=== PATIENT | male | born 1960 | race Caucasian/White ===

== ENCOUNTER 2018-09-26 19:58 | Inpatient (IN) ==
[2018-09-26 20:33] LABS: Basophils # 0.1 K/mcL (0.0-0.2); Basophils % 0.4 %; Eosinophils # 0.2 K/mcL (0.0-0.6); Eosinophils % 1.1 %; Hematocrit 37.7 % (37.5-50.1); Hemoglobin 11.5 g/dL (12.9-16.9); Immature Granulocytes % 0.5 % (0-4); Lymphocytes # 2.5 K/mcL (0.6-4.6); Lymphocytes % 16.8 %; Mean Corpuscular HGB Conc 30.5 g/dL (31.6-35.5); Mean Corpuscular Hemoglobin 28.5 pg (28.0-33.3); Mean Corpuscular Volume 93.5 fL (83.0-100.0); Mean Platelet Volume 9.5 fL (9.4-12.4); Monocytes # 1.3 K/mcL (0.0-1.3); Monocytes % 8.6 %; Platelet Count 239 K/mcL (140-400); Red Blood Count 4.03 M/mcL (4.19-5.50); Red Cell Distribution Width 12.8 % (11.5-14.5); Segmented Neutrophils % 72.6 %
[2018-09-26] MEDS ORDERED: methylPREDNISolone 125 MG/2 ML VIAL IVP ONE (20:41)
[2018-09-26] MEDS ORDERED: Ipratropium/Albuterol Neb 3 ML IH ONE (20:42)
[2018-09-26 20:54] LABS: BUN/Creatinine Ratio 22 (6-26); Blood Urea Nitrogen 15 mg/dL (8-23); Calcium 9.6 mg/dL (8.6-10.3); Carbon Dioxide 33 mEq/L (23-29); Chloride 100 mEq/L (98-107); Glucose 118 mg/dL (70-105); Osmolality,Calculated 286 (280-300); Potassium 4.2 mEq/L (3.5-5.1); Sodium 137 mEq/L (136-145); eGFR For Non-African Americans > 60 (> 60)
[2018-09-26 20:55] LABS: Troponin I < 0.03 ng/mL (< 0.04)
[2018-09-26 21:04] LABS: VBG HCO3 33 mEq/L (21-27); VBG PCO2 54 mmHg (41-51); VBG PO2 190 mmHg (25-50)
--- NOTE | 2018-09-26 21:46 | Emergency Department Note ---
Disposition Clinical Impression: COPD exacerbation, Confusion Disposition: Admitted As Inpatient Condition: Fair Time of Disposition: 22:03 General Adult HPI - General Chief complaint: ED Shortness of Breath/Dyspnea Stated complaint: francisca copd Time Seen by Provider: 09/26/18 20:05 Source: patient Mode of arrival: ambulatory Limitations: no limitations Nursing Notes Reviewed: Yes Vital Signs Reviewed: Yes - History of Present Illness HPI Narrative: Patient is a 4-year-old male with a past medical history of depression, COPD and brain tumor presents to the emergency department for evaluation of confusion. According the patient's she states that over the past month he has had worsening of his confusion. She states that he is disoriented intermittently and also was exhibiting abnormal behavior and having episodes of urinary incontinence. States that the patient was recently seen at [facility] for his symptoms she states that they told him that his lungs are just very weak and that there is nothing they can do for them in the hospital any further. states that this confusion has increased over the past 2 days. She states that he is chronically on 5 L nasal cannula at home. She denies any other obvious infectious symptoms such as increase in cough, nausea, vomiting, diarrhea or urinary complaints from the patient. Patient himself denies any pain at this time including no chest pain, dyspnea, abdominal pain. Pain Scale: 0 - Related Data Allergies Allergy/AdvReac Type Severity Reaction Status Date / Time morphine AdvReac See Verified 09/26/18 20:00 Comments All systems ED: reviewed and negative except as stated. Review of Systems: As Per HPI Constitutional: Reports: weakness. Denies: fever, chills Cardiovascular: Denies: chest pain, palpitations, dyspnea on exertion, edema, syncope Respiratory: Denies: cough, dyspnea, wheezes Gastrointestinal: Denies: abdominal pain, nausea, vomiting Genitourinary: Denies: urgency, dysuria, frequency Musculoskeletal: Denies: back pain, neck pain Integumentary: Denies: rash Neurological: Reports: confusion. Denies: headache, weakness, numbness, paresthesias Psychiatric: Denies: anxiety Past Medical History - Past Medical History Attestation: Yes The following information was validated with the patient. Medical history: Reports: COPD Psychiatric history: Reports: depression - Social History Smoking Status: Former smoker Smokeless Tobacco Status: No Alcohol use: Reports: none Drug use: Reports: none Physical Exam - General Limitations: no limitations General appearance: alert, in no apparent distress - Head Head exam: atraumatic, normocephalic, normal inspection - Eye Eye exam: Present: normal appearance, PERRL, EOMI - ENT ENT exam: normal exam, normal oropharynx, mucous membranes moist - Neck Neck exam: Present: normal inspection, full ROM, trachea midline - Chest Chest inspection: Present: normal inspection, symmetric chest wall rise. Absent: tenderness - Respiratory Respiratory exam: Present: wheezes (mild wheezing diffusely. Diminished breath sounds.) - Cardiovascular Cardiovascular exam: Present: regular rate, normal rhythm, normal heart sounds, +S1, +S2 - Abdominal Exam Abdominal exam: Present: soft, normal bowel sounds - Extremities Exam Extremities exam: Present: normal inspection, full ROM. Absent: tenderness, pedal edema - Back Exam Back exam: Present: normal inspection. Absent: tenderness - Neurological Exam Neurological exam: Present: alert, other (oriented x1) - Expanded Neurological Exam Patient oriented to: Present: person. Absent: place, time Speech: Present: fluid speech Cranial nerves: EOM function (II, III, IV, ): Normal, facial sensation (V): Normal, facial palsy (VII): Normal, gag reflex (IX): Normal, spinal accessory function (XI): Normal, tongue deviation (XII): Normal Cerebellar function: finger to nose: Normal, heel to moran: Normal Motor strength - LUE: 5/5 Motor strength - RUE: 5/5 Motor strength - LLE: 5/5 Motor strength - RLE: 5/5 Sensory exam upper extremity: light touch: Normal Sensory exam lower extremity: light touch: Normal Coma Scale Eye Opening: Spontaneous Coma Scale Motor Response: Obeys Commands Coma Scale Verbal Response: Oriented Coma Scale Total: 15 - Psychiatric Psychiatric exam: Present: normal affect, normal mood - Skin Skin exam: Present: warm, dry, intact, normal color Course Course Narrative: Patient's presenting for worsening confusion. On exam he is oriented 1. He does have diminished breath sounds bilaterally with mild wheezing. He underwent evaluation for his confusion that he was treated for COPD exacerbation while in the emergency department. CT of his head showed no acute intracranial abnormality and chest x-ray was negative for any acute cardiopulmonary process. His lab work was significant for leukocytosis of 15.2 and metabolic panel was within normal limits. A VBG was drawn early on patient's care to evaluate for any hypercapnia that was within normal limits. Discussedplan to admit the patient for further evaluation of his disorientation as well as continued treatment of COPD. Vital Signs Temperature 98.1 F 09/26/18 20:00 Pulse Rate 85 09/26/18 20:00 Respiratory Rate 25 09/26/18 20:00 Blood Pressure 128/82 09/26/18 20:00 O2 Sat by Pulse Oximetry 95 09/26/18 20:00 Temperature 98.1 F 09/26/18 20:10 Pulse Rate 88 09/26/18 21:41 Respiratory Rate 18 09/27/18 01:08 Blood Pressure 126/92 09/27/18 01:08 O2 Sat by Pulse Oximetry 98 09/26/18 21:41 Oxygen Delivery Oxygen Delivery Nasal Cannula Medical Decision Making - Medical Records Medical records reviewed: Yes I reviewed the patient's medical records. - Lab Data Lab results reviewed: Yes I reviewed the patient's lab results. Result diagrams: 09/26/18 20:16 09/26/18 20:16 Lab Results 09/26/18 09/26/18 09/26/18 Range/Units 20:16 20:16 20:16 WBC 15.2 H (4.3-11.1) K/mcL RBC 4.03 L (4.19-5.50) M/mcL Hgb 11.5 L (12.9-16.9) g/dL Hct 37.7 (37.5-50.1) % MCV 93.5 (83.0-100.0) fL MCH 28.5 (28.0-33.3) pg MCHC 30.5 L (31.6-35.5) g/dL RDW 12.8 (11.5-14.5) % Plt Count 239 (140-400) K/mcL MPV 9.5 (9.4-12.4) fL Immature Gran % 0.5 (0-4) % Seg Neutrophils % 72.6 % Lymphocytes % 16.8 % Monocytes % 8.6 % Eosinophils % 1.1 % Basophils % 0.4 % Neutrophils # 11.0 H (1.6-8.9) K/mcL Lymphocytes # 2.5 (0.6-4.6) K/mcL Monocytes # 1.3 (0.0-1.3) K/mcL Eosinophils # 0.2 (0.0-0.6) K/mcL Basophils # 0.1 (0.0-0.2) K/mcL VBG pH (7.32-7.42) pH Units VBG pCO2 (41-51) mmHg VBG pO2 (25-50) mmHg VBG HCO3 (21-27) mEq/L Sodium 137 (136-145) mEq/L Potassium 4.2 (3.5-5.1) mEq/L Chloride 100 (98-107) mEq/L Carbon Dioxide 33 H (23-29) mEq/L BUN 15 (8-23) mg/dL Creatinine 0.67 L (0.70-1.30) mg/dL Est GFR ( Amer) > 60 (> 60) Est GFR (Non-Af Amer) > 60 (> 60) BUN/Creatinine Ratio 22 (6-26) Glucose 118 H (70-105) mg/dL Calculated Osmolality 286 (280-300) Lactic Acid (0.5-2.2) mmol/L Calcium 9.6 (8.6-10.3) mg/dL Total Bilirubin 0.5 (0.3-1.0) mg/dL Direct Bilirubin 0.1 (0.0-0.2) mg/dL Indirect Bilirubin 0.4 (0.0-1.2) mg/dL AST 17 (13-39) Units/L ALT 9 (7-52) Units/L Alkaline Phosphatase 64 (34-104) Units/L Troponin I < 0.03 (< 0.04) ng/mL B-Natriuretic Peptide 50 (Less than 100) pg/mL Serum Total Protein 7.1 (6.4-8.9) g/dL Albumin 4.3 (3.5-5.7) g/dL Globulin 2.8 (2.4-3.5) g/dL Albumin/Globulin Ratio 1.5 (1.1-2.2) TSH 0.610 (0.340-5.600) mcIU/mL Urine Color (Yellow) Urine Clarity (Clear) Urine pH (5.0-8.0) pH Units Ur Specific [place] (1.010-1.025) Urine Protein (Neg-Trace) mg/dL Urine Glucose (UA) (Normal) mg/dL Urine Ketones (Negative) mg/dL Urine Blood (Negative) Urine Nitrite (Negative) Urine Bilirubin (Negative) Urine Urobilinogen (Normal) mg/dL Ur Leukocyte Esterase (Negative) Ur Culture Indicated? (NO) 09/26/18 09/26/18 09/26/18 Range/Units 20:16 21:01 21:55 WBC (4.3-11.1) K/mcL RBC (4.19-5.50) M/mcL Hgb (12.9-16.9) g/dL Hct (37.5-50.1) % MCV (83.0-100.0) fL MCH (28.0-33.3) pg MCHC (31.6-35.5) g/dL RDW (11.5-14.5) % Plt Count (140-400) K/mcL MPV (9.4-12.4) fL Immature Gran % (0-4) % Seg Neutrophils % % Lymphocytes % % Monocytes % % Eosinophils % % Basophils % % Neutrophils # (1.6-8.9) K/mcL Lymphocytes # (0.6-4.6) K/mcL Monocytes # (0.0-1.3) K/mcL Eosinophils # (0.0-0.6) K/mcL Basophils # (0.0-0.2) K/mcL VBG pH 7.40 (7.32-7.42) pH Units VBG pCO2 54 H (41-51) mmHg VBG pO2 190 H (25-50) mmHg VBG HCO3 33 H (21-27) mEq/L Sodium (136-145) mEq/L Potassium (3.5-5.1) mEq/L Chloride (98-107) mEq/L Carbon Dioxide (23-29) mEq/L BUN (8-23) mg/dL Creatinine (0.70-1.30) mg/dL Est GFR ( Amer) (> 60) Est GFR (Non-Af Amer) (> 60) BUN/Creatinine Ratio (6-26) Glucose (70-105) mg/dL Calculated Osmolality (280-300) Lactic Acid 1.0 (0.5-2.2) mmol/L Calcium (8.6-10.3) mg/dL Total Bilirubin (0.3-1.0) mg/dL Direct Bilirubin (0.0-0.2) mg/dL Indirect Bilirubin (0.0-1.2) mg/dL AST (13-39) Units/L ALT (7-52) Units/L Alkaline Phosphatase (34-104) Units/L Troponin I (< 0.04) ng/mL B-Natriuretic Peptide (Less than 100) pg/mL Serum Total Protein (6.4-8.9) g/dL Albumin (3.5-5.7) g/dL Globulin (2.4-3.5) g/dL Albumin/Globulin Ratio (1.1-2.2) TSH (0.340-5.600) mcIU/mL Urine Color Yellow (Yellow) Urine Clarity Clear (Clear) Urine pH 8.0 (5.0-8.0) pH Units Ur Specific [place] 1.006 L (1.010-1.025) Urine Protein Negative (Neg-Trace) mg/dL Urine Glucose (UA) Normal (Normal) mg/dL Urine Ketones Negative (Negative) mg/dL Urine Blood Negative (Negative) Urine Nitrite Negative (Negative) Urine Bilirubin Negative (Negative) Urine Urobilinogen Normal (Normal) mg/dL Ur Leukocyte Esterase Negative (Negative) Ur Culture Indicated? NO (NO) - Radiology Data Radiology results reviewed: Yes I reviewed the patient's radiology results. Chest X-Ray 09/26/18 20:11 IMPRESSION: No acute cardiopulmonary process D/ / Ramesh Steele / Ramesh Steele Interpreting Provider: Ramesh Steele - EKG Data EKG #1 EKG attestation: Yes I reviewed and interpreted this EKG. EKG results narrative: EKG done at 20:12 shows sinus rhythm at a rate of 80 bpm. Normal axis. Intervals within normal limits. No STEMI.
[2018-09-26 21:48] LABS: Alanine Aminotransferase 9 Units/L (7-52); Albumin 4.3 g/dL (3.5-5.7); Albumin/Globulin Ratio 1.5 (1.1-2.2); Alkaline Phosphatase 64 Units/L (34-104); Aspartate Amino Transferase 17 Units/L (13-39); Bilirubin,Direct 0.1 mg/dL (0.0-0.2); Bilirubin,Indirect 0.4 mg/dL (0.0-1.2); Bilirubin,Total 0.5 mg/dL (0.3-1.0); Globulin 2.8 g/dL (2.4-3.5); Total Protein 7.1 g/dL (6.4-8.9)
[2018-09-26] MEDS ORDERED: Levofloxacin 750 MG/150 ML 750 MG/150 ML BAG IVPB ONE (22:00)
[2018-09-26 22:09] LABS: Bilirubin,Urine Negative (Negative); Blood,Urine Negative (Negative); Clarity,Urine Clear (Clear); Color,Urine Yellow (Yellow); Glucose,Urine (UA) Normal (Normal); Ketones,Urine Negative (Negative); Leukocyte Esterase,Urine Negative (Negative); Nitrite,Urine Negative (Negative); Protein,Urine Negative (Neg-Trace); Specific Gravity,Urine 1.006 (1.010-1.025); Urobilinogen,Urine Normal (Normal)
--- NOTE | 2018-09-26 23:28 | Emergency Department Note ---
Disposition Clinical Impression: COPD exacerbation, Confusion Disposition: Admitted As Inpatient Condition: Fair Referrals: [facility] [Outside] Forms: ED Satisfaction Letter General Adult HPI - General Chief complaint: ED Shortness of Breath/Dyspnea Stated complaint: francisca copd Time Seen by Provider: 09/26/18 20:05 Source: patient Mode of arrival: ambulatory Limitations: no limitations Nursing Notes Reviewed: Yes Vital Signs Reviewed: Yes - History of Present Illness Pain Scale: 0 - Related Data Allergies Allergy/AdvReac Type Severity Reaction Status Date / Time morphine AdvReac See Verified 09/26/18 20:00 Comments Constitutional: Reports: weakness. Denies: fever, chills Cardiovascular: Denies: chest pain, palpitations, dyspnea on exertion, edema, syncope Respiratory: Denies: cough, dyspnea, wheezes Gastrointestinal: Denies: abdominal pain, nausea, vomiting Genitourinary: Denies: urgency, dysuria, frequency Musculoskeletal: Denies: back pain, neck pain Integumentary: Denies: rash Neurological: Reports: confusion. Denies: headache, weakness, numbness, paresthesias Psychiatric: Denies: anxiety Past Medical History - Past Medical History Medical history: Reports: COPD Psychiatric history: Reports: depression - Social History Smoking Status: Former smoker Smokeless Tobacco Status: No Alcohol use: Reports: none Drug use: Reports: none Physical Exam - General Limitations: no limitations General appearance: alert, in no apparent distress Course Vital Signs Temperature 98.1 F 09/26/18 20:00 Pulse Rate 85 09/26/18 20:00 Respiratory Rate 25 09/26/18 20:00 Blood Pressure 128/82 09/26/18 20:00 O2 Sat by Pulse Oximetry 95 09/26/18 20:00 Temperature 98.1 F 09/26/18 20:10 Pulse Rate 88 09/26/18 21:41 Respiratory Rate 17 09/26/18 21:41 Blood Pressure 117/92 09/26/18 21:41 O2 Sat by Pulse Oximetry 98 09/26/18 21:41 Oxygen Delivery Oxygen Delivery Nasal Cannula Medical Decision Making - Lab Data Lab results reviewed: Yes I reviewed the patient's lab results. Result diagrams: 09/26/18 20:16 09/26/18 20:16 Lab Results 09/26/18 09/26/18 09/26/18 Range/Units 20:16 20:16 20:16 WBC 15.2 H (4.3-11.1) K/mcL RBC 4.03 L (4.19-5.50) M/mcL Hgb 11.5 L (12.9-16.9) g/dL Hct 37.7 (37.5-50.1) % MCV 93.5 (83.0-100.0) fL MCH 28.5 (28.0-33.3) pg MCHC 30.5 L (31.6-35.5) g/dL RDW 12.8 (11.5-14.5) % Plt Count 239 (140-400) K/mcL MPV 9.5 (9.4-12.4) fL Immature Gran % 0.5 (0-4) % Seg Neutrophils % 72.6 % Lymphocytes % 16.8 % Monocytes % 8.6 % Eosinophils % 1.1 % Basophils % 0.4 % Neutrophils # 11.0 H (1.6-8.9) K/mcL Lymphocytes # 2.5 (0.6-4.6) K/mcL Monocytes # 1.3 (0.0-1.3) K/mcL Eosinophils # 0.2 (0.0-0.6) K/mcL Basophils # 0.1 (0.0-0.2) K/mcL VBG pH (7.32-7.42) pH Units VBG pCO2 (41-51) mmHg VBG pO2 (25-50) mmHg VBG HCO3 (21-27) mEq/L Sodium 137 (136-145) mEq/L Potassium 4.2 (3.5-5.1) mEq/L Chloride 100 (98-107) mEq/L Carbon Dioxide 33 H (23-29) mEq/L BUN 15 (8-23) mg/dL Creatinine 0.67 L (0.70-1.30) mg/dL Est GFR ( Amer) > 60 (> 60) Est GFR (Non-Af Amer) > 60 (> 60) BUN/Creatinine Ratio 22 (6-26) Glucose 118 H (70-105) mg/dL Calculated Osmolality 286 (280-300) Lactic Acid (0.5-2.2) mmol/L Calcium 9.6 (8.6-10.3) mg/dL Total Bilirubin 0.5 (0.3-1.0) mg/dL Direct Bilirubin 0.1 (0.0-0.2) mg/dL Indirect Bilirubin 0.4 (0.0-1.2) mg/dL AST 17 (13-39) Units/L ALT 9 (7-52) Units/L Alkaline Phosphatase 64 (34-104) Units/L Troponin I < 0.03 (< 0.04) ng/mL B-Natriuretic Peptide 50 (Less than 100) pg/mL Serum Total Protein 7.1 (6.4-8.9) g/dL Albumin 4.3 (3.5-5.7) g/dL Globulin 2.8 (2.4-3.5) g/dL Albumin/Globulin Ratio 1.5 (1.1-2.2) TSH 0.610 (0.340-5.600) mcIU/mL Urine Color (Yellow) Urine Clarity (Clear) Urine pH (5.0-8.0) pH Units Ur Specific [place] (1.010-1.025) Urine Protein (Neg-Trace) mg/dL Urine Glucose (UA) (Normal) mg/dL Urine Ketones (Negative) mg/dL Urine Blood (Negative) Urine Nitrite (Negative) Urine Bilirubin (Negative) Urine Urobilinogen (Normal) mg/dL Ur Leukocyte Esterase (Negative) Ur Culture Indicated? (NO) 09/26/18 09/26/18 09/26/18 Range/Units 20:16 21:01 21:55 WBC (4.3-11.1) K/mcL RBC (4.19-5.50) M/mcL Hgb (12.9-16.9) g/dL Hct (37.5-50.1) % MCV (83.0-100.0) fL MCH (28.0-33.3) pg MCHC (31.6-35.5) g/dL RDW (11.5-14.5) % Plt Count (140-400) K/mcL MPV (9.4-12.4) fL Immature Gran % (0-4) % Seg Neutrophils % % Lymphocytes % % Monocytes % % Eosinophils % % Basophils % % Neutrophils # (1.6-8.9) K/mcL Lymphocytes # (0.6-4.6) K/mcL Monocytes # (0.0-1.3) K/mcL Eosinophils # (0.0-0.6) K/mcL Basophils # (0.0-0.2) K/mcL VBG pH 7.40 (7.32-7.42) pH Units VBG pCO2 54 H (41-51) mmHg VBG pO2 190 H (25-50) mmHg VBG HCO3 33 H (21-27) mEq/L Sodium (136-145) mEq/L Potassium (3.5-5.1) mEq/L Chloride (98-107) mEq/L Carbon Dioxide (23-29) mEq/L BUN (8-23) mg/dL Creatinine (0.70-1.30) mg/dL Est GFR ( Amer) (> 60) Est GFR (Non-Af Amer) (> 60) BUN/Creatinine Ratio (6-26) Glucose (70-105) mg/dL Calculated Osmolality (280-300) Lactic Acid 1.0 (0.5-2.2) mmol/L Calcium (8.6-10.3) mg/dL Total Bilirubin (0.3-1.0) mg/dL Direct Bilirubin (0.0-0.2) mg/dL Indirect Bilirubin (0.0-1.2) mg/dL AST (13-39) Units/L ALT (7-52) Units/L Alkaline Phosphatase (34-104) Units/L Troponin I (< 0.04) ng/mL B-Natriuretic Peptide (Less than 100) pg/mL Serum Total Protein (6.4-8.9) g/dL Albumin (3.5-5.7) g/dL Globulin (2.4-3.5) g/dL Albumin/Globulin Ratio (1.1-2.2) TSH (0.340-5.600) mcIU/mL Urine Color Yellow (Yellow) Urine Clarity Clear (Clear) Urine pH 8.0 (5.0-8.0) pH Units Ur Specific [place] 1.006 L (1.010-1.025) Urine Protein Negative (Neg-Trace) mg/dL Urine Glucose (UA) Normal (Normal) mg/dL Urine Ketones Negative (Negative) mg/dL Urine Blood Negative (Negative) Urine Nitrite Negative (Negative) Urine Bilirubin Negative (Negative) Urine Urobilinogen Normal (Normal) mg/dL Ur Leukocyte Esterase Negative (Negative) Ur Culture Indicated? NO (NO) - Radiology Data Radiology results reviewed: Yes I reviewed the patient's radiology results. Chest X-Ray 09/26/18 20:11 IMPRESSION: No acute cardiopulmonary process D/ / Ramesh Steele / Ramesh Steele Interpreting Provider: Ramesh Steele Head CT 09/26/18 20:40 IMPRESSION: 1. No acute intracranial abnormality. 2. Status post left parietal craniotomy with adjacent encephalomalacia. 3. Large right and small left mastoid air cell effusions. D/ / Ian Dela Cruz MD / Ian Dela Cruz MD Interpreting Provider: Ian Dela Cruz MD - EKG Data EKG #1 EKG attestation: Yes I reviewed and interpreted this EKG. EKG results narrative: EKG shows normal sinus rhythm with ventricular rate of 80. No ST segment elevation or depression. No arrhythmia or ectopy. Attestation Statement - Attestation Attestation: I, Stanton Castorena MD, personally evaluated this patient and discussed their management with the resident physician. I reviewed the resident's note and agree with the documented findings, medical decision making, and plan of care. 58-year-old male with history of COPD presents to the emergency department with a complaint of increased shortness of breath for the past 2 days. There has been increased cough with some thick reddish-brown sputum production. Subjective fevers. He also complains of some diffuse chest pain. Patient is on home oxygen at 5 L. reports that about 1-1/2 months ago he was admitted holds her for similar episode and was in ICU for 4 days but was then sent home and told there is nothing more they could do for him. On examination patient is a well-developed well-nourished male in mild distress. He is alert but oriented to person only. He seems confused and slow to respond to questions. He is pale and mildly diaphoretic. No cyanosis noted. Breath sounds are markedly decreased bilaterally with scattered bilateral expiratory wheezes. Heart regular rate and rhythm. Abdomen soft and nontender with normal bowel sounds. EKG shows a normal sinus rhythm with rate of 80 in no acute changes. Chest x- ray shows no acute cardiopulmonary abnormality. Head CT shows no acute intracranial abnormality. Labs reviewed. WBC 15.2. BNP, troponin, and lactic acid normal. The hospitalist, Dr. Thorne, was consulted and accepted admission of the patient.
[2018-09-27] MEDS: MethylPREDNISolone 40 MG/ML VIAL IVP SCH ×3 (05:51→17:28)
[2018-09-27] MEDS: Ipratropium/Albuterol Neb 3 ML IH SCH ×4 (06:15→23:18)
[2018-09-27 06:35] LABS: ABG Base Excess 6 mEq/L (-2 to 3); ABG HCO3 32 mEq/L (21-27); ABG Oxygen Saturation 96 % (95-98); ABG PCO2 51 mmHg (35-45); ABG PH 7.41 pH Units (7.32-7.45); ABG PO2 82 mmHg (85-104); ABG TCO2 34 mEq/L (20-26)
--- NOTE | 2018-09-27 06:36 | Internal Med History&Physical ---
Date of Encounter: 09/27/18 Time of Encounter: 06:33 Internal Medicine - H&P: HPI Chief complaint: AMS/SOB History of present illness: Mr. Flores is a 58 year old male with a past medical history of COPD on 5 L home oxygen who presents to the ED due to increasing confusion and shortness of breath. At the time of my assessment patient was alert oriented 1. Patient's is at bedside who provided most of the history. She states that for the past 2 days patient has been having shortness of breath characterized by shallow rapid breathing. No reports of cough. She also endorses subjective fever and chills. No sick contacts. She is also noted increasing confusion over the past 4 days. She states that patient has not been eating or going to the bathroom. He also has been hallucinating stating he sees cockroaches and spiderwebs which are not there. While in the room patient reported seeing cockroaches in the corner. 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 She is concerned that he may have some sort of underlying dementia. He is at baseline alert oriented 2-3. She states that he has been shaking and has been feeling more weak than usual for the past week. reports that about 1-1/2 months ago he was admitted with a similar presentation and was in ICU for 4 days. Labs were notable for an elevated white blood cell count. Blood gases were obtained which showed mild hypercapnia with a PCO2 of 51. Past Med Surg Social Fam HX - Past Medical History Medical history: COPD Psychiatric history: depression - Past Surgical History Additional surgical history: brain surgery-tumor removed (1990) - Social History Smoking Status: Former smoker Smokeless Tobacco Status: No Alcohol use: none Drug use: none - Family History Mother Age at : 62 Hx Family Cancer: Yes (kidney) Hx Family Endocrine Disorder: Yes Father Age at : 60 Hx Family Cardiac Disorders: Yes Internal Medicine - H&P: Meds Aspirin [Lo-Dose Aspirin EC] 09/27/18 [History] Baclofen [Lioresal] 09/27/18 [History] Escitalopram [Lexapro] 09/27/18 [History] [place] Carbonate 09/27/18 [History] Mirtazapine 09/27/18 [History] Nabumetone [Relafen] 09/27/18 [History] OxyCODONE/APAP 10/325 09/27/18 [History] OxyCODONE/APAP 10/325 20 mg 09/27/18 [History] Ranitidine HCl [Acid Diesel Motor Mechanic] 09/27/18 [History] RisperiDONE 1 mg 09/27/18 [History] Topiramate 09/27/18 [History] Allergy/AdvReac Type Severity Reaction Status Date / Time morphine AdvReac See Verified 09/26/18 20:00 Comments All Systems PM: A 10-system review of systems was performed and is negative for pertinent findings except as documented above in the HPI. - Constitutional Constitutional: no chills, no fever(s), no night sweats - EENT Eyes: no change in vision, no discharge, no pain, no photophobia Ears: no ear discharge, no ear pain, no tinnitus Nose, mouth and throat: no dysphagia, no nasal discharge, no neck pain, no sore throat - Cardiovascular Cardiovascular ROS IM: no chest pain, no diaphoresis, no dyspnea, no lightheadedness, no palpitations, no syncope - Respiratory Respiratory: no cough, no dyspnea, no wheezing, no excessive phlegm production - Gastrointestinal Gastrointestinal: no abdominal pain, no diarrhea, no hematemesis, no hematochezia, no melena, no nausea, no vomiting - Musculoskeletal Musculoskeletal ROS IM: no numbness, no tingling - Integumentary Integumentary IM: no rash, no unusual bruising - Neurological Neurological ROS: no confusion, no convulsions, no focal weakness, no numbness, no tingling, no tremor(s) - Hematologic/Lymphatic Hematologic/Lymphatic: no easy bruising - Constitutional Vitals: Temp Pulse Resp BP Pulse Ox 99.9 F H 85 15 116/78 98 09/27/18 04:41 09/27/18 04:41 09/27/18 04:41 09/27/18 04:41 09/27/18 04:41 Exam: General: Alert and oriented 1 Skin:Normal color, no rash, no lesions. HEENT:EOM, pupils equal, round and reactive. Cardiovascular:Normal S1 & S2, no rubs, murmurs or gallops. No JVD. Pulse regular. Lungs: Diminished breath sounds throughout Abdomen:Soft, non-tender, no rigidity. Extremities:No deformity, no edema or tenderness, no joint swelling or clubbing. Neurological:Normal cognition and motor skills. Pulses:Carotid and radial pulses normal +2. Rest of the physical exam is non contributory Internal Med - H&P Results - Labs CBC & Chem 7: 09/27/18 05:19 09/27/18 06:39 Labs: Short CBC 09/26/18 Range/Units 20:16 WBC 15.2 H (4.3-11.1) K/mcL Hgb 11.5 L (12.9-16.9) g/dL Hct 37.7 (37.5-50.1) % Plt Count 239 (140-400) K/mcL Neutrophils # 11.0 H (1.6-8.9) K/mcL BMP 09/26/18 20:16 Sodium 137 Potassium 4.2 Chloride 100 Carbon Dioxide 33 H BUN 15 Creatinine 0.67 L Glucose 118 H Calcium 9.6 Cardiac Enzymes 09/26/18 Range/Units 20:16 Troponin I < 0.03 (< 0.04) ng/mL Liver Function 09/26/18 Range/Units 20:16 Total Bilirubin 0.5 (0.3-1.0) mg/dL Direct Bilirubin 0.1 (0.0-0.2) mg/dL AST 17 (13-39) Units/L ALT 9 (7-52) Units/L Alkaline Phosphatase 64 (34-104) Units/L Albumin 4.3 (3.5-5.7) g/dL Urine 09/26/18 Range/Units 21:55 Urine Color Yellow (Yellow) Urine Clarity Clear (Clear) Urine pH 8.0 (5.0-8.0) pH Units Ur Specific [place] 1.006 L (1.010-1.025) Urine Protein Negative (Neg-Trace) mg/dL Urine Glucose (UA) Normal (Normal) mg/dL - ABG Interpretation ABG results: 09/26/18 21:01 VBG pH 7.40 VBG pCO2 54 H VBG pO2 190 H VBG HCO3 33 H - Impressions ITS Impressions Chest X-Ray 09/26/18 20:11 IMPRESSION: No acute cardiopulmonary process D/ / Ramesh Steele / Ramesh Steele Interpreting Provider: Ramesh Steele Head CT 09/26/18 20:40 IMPRESSION: 1. No acute intracranial abnormality. 2. Status post left parietal craniotomy with adjacent encephalomalacia. 3. Large right and small left mastoid air cell effusions. D/ / Ian Dela Cruz MD / Ian Dela Cruz MD Interpreting Provider: Ian Dela Cruz MD - Assessment and plan (1) COPD exacerbation Current Visit: Yes Status: Acute Assessment and plan: Patient presents with worsening shortness of breath for the past 2 days. Patient has diminished breath sounds throughout with mild expiratory wheezing noted. Chest x-ray shows no acute cardiopulmonary process. Received Solu- Medrol and breathing treatment in the ED. We will continue treatment for COPD exacerbation -40 mg Solu-Medrol every 6 hours -Duo nebs -Levofloxacin (2) Confusion Current Visit: Yes Status: Acute Assessment and plan: 4 day history of confusion associated with visual hallucinations. Patient currently alert oriented 1, however he does know who the president is. Able to follow commands. ABG was obtained which showed a PCO2 of 51 which is likely his baseline as the patient appears to be compensated. Patient is on multiple psychiatric medications including lithium. Concern that change in mental status may be psychiatric however we will continue to treat for COPD and possible pneumonia and see if symptoms improve. -We will obtain a lithium level -Psychiatry evaluation appreciated. - (3) Mood disorder due to known physiological condition, unspecified Current Visit: Yes Status: Acute Assessment and plan: patient on several psychiatric medications. Unclear if patient has bipolar disorder but is currently on lithium. We will obtain lithium level and psychiatry consult. (4) DVT prophylaxis Current Visit: Yes Status: Acute Assessment and plan: Subcutaneous heparin - Time Spent With Patient Total time spent is greater than 50% in coordination of care (as documented) at patient's floor/unit and/or counseling patient:
[2018-09-27 07:09] LABS: Basophils % 0.1 %; Hemoglobin 11.4 g/dL (12.9-16.9); Immature Granulocytes % 0.5 % (0-4); Lymphocytes # 1.3 K/mcL (0.6-4.6); Lymphocytes % 10.9 %; Mean Corpuscular HGB Conc 30.8 g/dL (31.6-35.5); Mean Corpuscular Hemoglobin 28.3 pg (28.0-33.3); Mean Corpuscular Volume 91.8 fL (83.0-100.0); Mean Platelet Volume 9.7 fL (9.4-12.4); Monocytes # 0.7 K/mcL (0.0-1.3); Monocytes % 6.1 %; Neutrophils # 9.8 K/mcL (1.6-8.9); Platelet Count 251 K/mcL (140-400); Red Blood Count 4.03 M/mcL (4.19-5.50); Red Cell Distribution Width 12.9 % (11.5-14.5); Segmented Neutrophils % 82.4 %
[2018-09-27 07:19] LABS: Alanine Aminotransferase 9 Units/L (7-52); Albumin 4.2 g/dL (3.5-5.7); Albumin/Globulin Ratio 1.4 (1.1-2.2); Alkaline Phosphatase 62 Units/L (34-104); Aspartate Amino Transferase 13 Units/L (13-39); BUN/Creatinine Ratio 25 (6-26); Bilirubin,Total 0.4 mg/dL (0.3-1.0); Blood Urea Nitrogen 16 mg/dL (8-23); Calcium 9.7 mg/dL (8.6-10.3); Carbon Dioxide 29 mEq/L (23-29); Chloride 101 mEq/L (98-107); Globulin 2.9 g/dL (2.4-3.5); Glucose 145 mg/dL (70-105); Osmolality,Calculated 284 (280-300); Potassium 4.5 mEq/L (3.5-5.1); Sodium 135 mEq/L (136-145); Total Protein 7.1 g/dL (6.4-8.9); eGFR For Non-African Americans > 60 (> 60)
[2018-09-27] MEDS: *HR* Heparin 5,000 UNIT/ML VIAL SQ SCH ×3 (08:10→23:16)
[2018-09-27] MEDS ORDERED: Baclofen 10 MG TABLET PO PRN (12:57)
[2018-09-27] MEDS: Lithium Carbonate 300 MG CAPSULE PO SCH ×2 (14:40→23:16)
--- NOTE | 2018-09-27 17:28 | Consult Note ---
Date of Encounter: 09/27/18 Time of Encounter: 17:00 Assessment & Recommendation (1) Delirium due to known physiological condition Current visit: Yes Status: Acute History of Present Illness Patient: new to practice Requesting Physician: Navin Reed Reason for consult: ams History of present illness: Mr. Flores is a 58 year old male The patient has a fair historian and his was not present. He can give me some of the features of his medical treatment but cannot tell me why he is on lithium or other medicines this is important to determine his treatment. That being said the patient identifies difficulty with his mentation notes that he is having difficulty with remembering things and has difficulty writing and concentrating. Other features in the chart are strongly suggestive of delirium. CC: Navin Reed Past Med Surg Social Fam HX - Past Medical History Medical history: COPD - Social History Smoking Status: Former smoker Smokeless Tobacco Status: No Alcohol use: none Drug use: none Occupational status: disabled Current living situation: With Family - Family History Mother Age at : 62 Hx Family Cancer: Yes (kidney) Hx Family Endocrine Disorder: Yes Father Age at : 60 Hx Family Cardiac Disorders: Yes Medications & Allergies Aspirin [Adult Aspirin] 81 mg PO DAILY 09/27/18 [History] Baclofen [Lioresal] 10 mg PO TID PRN 09/27/18 [History] Escitalopram [Lexapro] 20 mg PO DAILY 09/27/18 [History] [place] Carbonate 300 mg PO TID 09/27/18 [History] Mirtazapine 45 mg PO HS 09/27/18 [History] Nabumetone [Relafen] 500 mg PO BIDWM 09/27/18 [History] OxyCODONE/APAP 10/325 [Percocet 10/325 MG] 1 tab PO Q6H PRN 09/27/18 [History] Ranitidine HCl [Acid Nurses Supervisor] 150 mg PO BID 09/27/18 [History] Topiramate 50 mg PO BID 09/27/18 [History] Allergy/AdvReac Type Severity Reaction Status Date / Time morphine AdvReac See Verified 09/26/18 20:00 Comments Review of Systems Psychiatric: Reports: abnormal sleep pattern, visual hallucinations, difficulty concentrating Psychiatry Exam - Constitutional Vitals: Temp Pulse Resp BP Pulse Ox 98.7 F 77 18 121/82 98 09/27/18 14:49 09/27/18 14:49 09/27/18 16:11 09/27/18 14:49 09/27/18 16:11 General appearance: age & developmentally appropriate, well-groomed, well- nourished - Musculoskeletal Strength & Tone: abnormal flexion, other - Psychiatric Patient Orientation: Yes Person, Yes Time, Yes Place Level of alertness: Sedated Behavior: guarded Psychomotor activity: Slowed Eye Contact: Minimal Contact Mood Description: Other Affect description: flat Speech Volume: Soft/Quiet Language & Vocabulary: difficulty finding words, anomia Thought Process: Perseveration, Slowed Thinking Thought Content: Yes Intact Attention Span Ability: Unable to Sustain Attention Memory Description: Immediate Impaired, Recent Impaired, Remote Impaired Patient Reliability: Questionable Historian Judgment: Poor Insight: None Results - Drug Levels and Toxicology Drug Levels and Toxicology: Drug Levels and Toxicity 09/27/18 07:08 [place] 0.4 L - Labs Labs: Laboratory Last Values WBC 11.9 K/mcL (4.3-11.1) H 09/27/18 05:19 RBC 4.03 M/mcL (4.19-5.50) L 09/27/18 05:19 Hgb 11.4 g/dL (12.9-16.9) L 09/27/18 05:19 Hct 37.0 % (37.5-50.1) L 09/27/18 05:19 MCV 91.8 fL (83.0-100.0) 09/27/18 05:19 MCH 28.3 pg (28.0-33.3) 09/27/18 05:19 MCHC 30.8 g/dL (31.6-35.5) L 09/27/18 05:19 RDW 12.9 % (11.5-14.5) 09/27/18 05:19 Plt Count 251 K/mcL (140-400) 09/27/18 05:19 MPV 9.7 fL (9.4-12.4) 09/27/18 05:19 Immature Gran % 0.5 % (0-4) 09/27/18 05:19 Seg Neutrophils % 82.4 % 09/27/18 05:19 Lymphocytes % 10.9 % 09/27/18 05:19 Monocytes % 6.1 % 09/27/18 05:19 Eosinophils % 0.0 % 09/27/18 05:19 Basophils % 0.1 % 09/27/18 05:19 Neutrophils # 9.8 K/mcL (1.6-8.9) H 09/27/18 05:19 Lymphocytes # 1.3 K/mcL (0.6-4.6) 09/27/18 05:19 Monocytes # 0.7 K/mcL (0.0-1.3) 09/27/18 05:19 Eosinophils # 0.0 K/mcL (0.0-0.6) 09/27/18 05:19 Basophils # 0.0 K/mcL (0.0-0.2) 09/27/18 05:19 ABG pH 7.41 pH Units (7.32-7.45) 09/27/18 06:32 ABG pCO2 51 mmHg (35-45) H 09/27/18 06:32 ABG pO2 82 mmHg (85-104) L 09/27/18 06:32 ABG HCO3 32 mEq/L (21-27) H 09/27/18 06:32 ABG Total CO2 34 mEq/L (20-26) H 09/27/18 06:32 ABG O2 Saturation 96 % (95-98) 09/27/18 06:32 ABG Base Excess 6 mEq/L (-2 to 3) H 09/27/18 06:32 VBG pH 7.40 pH Units (7.32-7.42) 09/26/18 21:01 VBG pCO2 54 mmHg (41-51) H 09/26/18 21:01 VBG pO2 190 mmHg (25-50) H 09/26/18 21:01 VBG HCO3 33 mEq/L (21-27) H 09/26/18 21:01 O2 Delivery Device Cannula 09/27/18 06:32 Inspired O2 3.0 (1-15=lpm [id number]%) 09/27/18 06:32 Sodium 135 mEq/L (136-145) L 09/27/18 06:39 Potassium 4.5 mEq/L (3.5-5.1) 09/27/18 06:39 Chloride 101 mEq/L (98-107) 12/20/18 06:39 Carbon Dioxide 29 mEq/L (23-29) 09/27/18 06:39 BUN 16 mg/dL (8-23) 09/27/18 06:39 Creatinine 0.63 mg/dL (0.70-1.30) L 09/27/18 06:39 Est GFR ( Amer) > 60 (> 60) 09/27/18 06:39 Est GFR (Non-Af Amer) > 60 (> 60) 09/27/18 06:39 BUN/Creatinine Ratio 25 (6-26) 09/27/18 06:39 Glucose 145 mg/dL (70-105) H 09/27/18 06:39 Calculated Osmolality 284 (280-300) 09/27/18 06:39 Lactic Acid 1.0 mmol/L (0.5-2.2) 09/26/18 20:16 Calcium 9.7 mg/dL (8.6-10.3) 09/27/18 06:39 Total Bilirubin 0.4 mg/dL (0.3-1.0) 09/27/18 06:39 Direct Bilirubin 0.1 mg/dL (0.0-0.2) 09/26/18 20:16 Indirect Bilirubin 0.4 mg/dL (0.0-1.2) 09/26/18 20:16 AST 13 Units/L (13-39) 09/27/18 06:39 ALT 9 Units/L (7-52) 09/27/18 06:39 Alkaline Phosphatase 62 Units/L (34-104) 09/27/18 06:39 Ammonia 96 mcmol/L (16-53) H 09/27/18 06:41 Troponin I < 0.03 ng/mL (< 0.04) 09/26/18 20:16 B-Natriuretic Peptide 50 pg/mL (Less than 100) 09/26/18 20:16 Serum Total Protein 7.1 g/dL (6.4-8.9) 09/27/18 06:39 Albumin 4.2 g/dL (3.5-5.7) 09/27/18 06:39 Globulin 2.9 g/dL (2.4-3.5) 09/27/18 06:39 Albumin/Globulin Ratio 1.4 (1.1-2.2) 09/27/18 06:39 TSH 0.610 mcIU/mL (0.340-5.600) 09/26/18 20:16 Urine Color Yellow (Yellow) 09/26/18 21:55 Urine Clarity Clear (Clear) 09/26/18 21:55 Urine pH 8.0 pH Units (5.0-8.0) 09/26/18 21:55 Ur Specific [place] 1.006 (1.010-1.025) L 09/26/18 21:55 Urine Protein Negative mg/dL (Neg-Trace) 09/26/18 21:55 Urine Glucose (UA) Normal mg/dL (Normal) 09/26/18 21:55 Urine Ketones Negative mg/dL (Negative) 09/26/18 21:55 Urine Blood Negative (Negative) 09/26/18 21:55 Urine Nitrite Negative (Negative) 09/26/18 21:55 Urine Bilirubin Negative (Negative) 09/26/18 21:55 Urine Urobilinogen Normal mg/dL (Normal) 09/26/18 21:55 Ur Leukocyte Esterase Negative (Negative) 09/26/18 21:55 Ur Culture Indicated? NO (NO) 09/26/18 21:55 [place] 0.4 mEq/L (0.6-1.2) L 09/27/18 07:08 - Impressions Impressions Chest X-Ray 09/26/18 20:11 IMPRESSION: No acute cardiopulmonary process D/ / Ramesh Steele / Ramesh Steele Interpreting Provider: Ramesh Steele Head CT 09/26/18 20:40 IMPRESSION: 1. No acute intracranial abnormality. 2. Status post left parietal craniotomy with adjacent encephalomalacia. 3. Large right and small left mastoid air cell effusions. D/ / Ian Dela Cruz MD / Ian Dela Cruz MD Interpreting Provider: Ian Dela Cruz MD Consult Discharge Plan - Plan Referrals: NONE,PCP [Primary Care Provider] -
[2018-09-27] MEDS ORDERED: Levofloxacin 750 MG/150 ML 750 MG/150 ML BAG IVPB SCH (22:00)
--- NOTE | 2018-09-27 22:43 | Internal Med Progress Note ---
Hospitalist Progress Note - Encounter Date of Encounter: 09/27/18 Time of Encounter: 19:00 - Subjective Interval History: SUBJECTIVE: The patient feels better. He seems to be less confused; according to his family. Denies chest pain. He said breathing is less labored. He continues to have mild/moderate cough with off and on wheezing. Denies abdominal pain, nausea and vomiting. OBJECTIVE: Skin: Free of rash and discoloration. ENMT: Oral/pharyngeal mucosa is normal in appearance. Eyes: Sclera is white. There is no discharge from eyes. Respiratory: Normal breath sounds; I can hear a few bilateral rhonchi and wheezes. CV: Heart is regular; no gallop or murmur. GI: Abdomen is soft and not tender. There is no palpable mass or visceromegaly. Neuro: There is no focal deficits. ADDITIONAL DATA: Hemoglobin is 11.4 with WBC of 11.9 thousand (15.2 thousand yesterday). ABG shows PCO2 of 51 with PO2 of 82. It was done on FiO2 of 32%. BMP and hepatic panel are normal. However, his ammonia level is 96. ASSESSMENT AND PLAN: COPD exacerbation with acute on chronic hypoxic and hypercapnic respiratory failure. We will continue IV Levaquin with IV Solu-Medrol and nebulizer treatments with DuoNeb. Confusion. Better today. It could be secondary to he is hypercapnia. Then, it should get better with the above-mentioned treatments. It could be secondary to increased ammonia level. We need to repeat his first, as he said liver function tests are normal. I am requesting ultrasound of liver to check for possible liver cirrhosis. He does have underlying bipolar disorder. I am going to restart he is lithium and Topamax. His lithium level is a little bit lower and then recommended range. - Exam Vitals: Temp Pulse Resp BP Pulse Ox 98.7 F 77 18 121/82 98 09/27/18 14:49 09/27/18 14:49 09/27/18 16:11 09/27/18 14:49 09/27/18 16:11 Exam: xx - Assessment and Plan (1) COPD exacerbation Current Visit: Yes Status: Acute (2) Confusion Current Visit: Yes Status: Acute (3) Mood disorder due to known physiological condition, unspecified Current Visit: Yes Status: Acute (4) DVT prophylaxis Current Visit: Yes Status: Acute - Time Spent with Patient Total time spent is greater than 50% in coordination of care (as documented) at patient's floor/unit and/or counseling patient: 25 - 35 minutes Plan of Care Discussed with: patient Internal Medicine: Result - Labs CBC & Chem 7: 09/27/18 05:19 09/27/18 06:39 Labs: Short CBC 09/27/18 Range/Units 05:19 WBC 11.9 H (4.3-11.1) K/mcL Hgb 11.4 L (12.9-16.9) g/dL Hct 37.0 L (37.5-50.1) % Plt Count 251 (140-400) K/mcL Neutrophils # 9.8 H (1.6-8.9) K/mcL BMP 09/27/18 06:39 Sodium 135 L Potassium 4.5 Chloride 101 Carbon Dioxide 29 BUN 16 Creatinine 0.63 L Glucose 145 H Calcium 9.7 Liver Function 09/27/18 Range/Units 06:39 Total Bilirubin 0.4 (0.3-1.0) mg/dL AST 13 (13-39) Units/L ALT 9 (7-52) Units/L Alkaline Phosphatase 62 (34-104) Units/L Albumin 4.2 (3.5-5.7) g/dL - ABG Interpretation ABG results: ABG ABG pH 7.41 pH Units (7.32-7.45) 09/27/18 06:32 ABG pCO2 51 mmHg (35-45) H 09/27/18 06:32 ABG pO2 82 mmHg (85-104) L 09/27/18 06:32 ABG O2 Saturation 96 % (95-98) 09/27/18 06:32 Consult Discharge Plan - Plan Referrals: NONE,PCP [Primary Care Provider] -
[2018-09-27] MEDS: Famotidine 20 MG TABLET PO SCH (23:15)
[2018-09-27] MEDS: Mirtazapine 15 MG TABLET PO SCH (23:15)
[2018-09-27] MEDS: Topiramate 25 MG TABLET PO SCH (23:15)
[2018-09-28] MEDS: Ipratropium/Albuterol Neb 3 ML IH SCH ×4 (04:12→22:49)
[2018-09-28] MEDS: *HR* Heparin 5,000 UNIT/ML VIAL SQ SCH ×3 (05:18→22:30)
[2018-09-28 06:19] LABS: BUN/Creatinine Ratio 23 (6-26); Blood Urea Nitrogen 16 mg/dL (8-23); Calcium 9.7 mg/dL (8.6-10.3); Carbon Dioxide 29 mEq/L (23-29); Chloride 103 mEq/L (98-107); Glucose 104 mg/dL (70-105); Osmolality,Calculated 285 (280-300); Potassium 3.9 mEq/L (3.5-5.1); Sodium 137 mEq/L (136-145); eGFR For Non-African Americans > 60 (> 60)
[2018-09-28] MEDS: Famotidine 20 MG TABLET PO SCH ×2 (08:16→22:29)
[2018-09-28] MEDS: Topiramate 25 MG TABLET PO SCH ×2 (08:16→22:29)
[2018-09-28] MEDS: Lithium Carbonate 300 MG CAPSULE PO SCH ×3 (08:16→22:29)
[2018-09-28] MEDS: Aspirin Enteric Coated 81 MG Tablet PO SCH (08:16)
[2018-09-28] MEDS: predniSONE 20 MG TABLET PO SCH (08:16)
[2018-09-28] MEDS: *HR* OxyCODONE/APAP 10/325 TABLET PO PRN (18:29)
--- NOTE | 2018-09-28 21:59 | Internal Med Progress Note ---
Hospitalist Progress Note - Encounter Date of Encounter: 09/28/18 Time of Encounter: 19:00 - Subjective Interval History: SUBJECTIVE: The patient feels progressively better. His confusion observed recently nearly subsided. He tells me that he is using oxygen at 5 L/min nasal cannula. Currently, he needs only 2 L/min (pulse ox of 95%). He does have mild cough but not wheezing. Denies chest pain. Denies abdominal pain, nausea and vomiting. OBJECTIVE: Skin: Free of rash and discoloration. ENMT: Oral/pharyngeal mucosa is normal in appearance. Eyes: Sclera is white. There is no discharge from eyes. Respiratory: Normal breath sounds; I can hear a few bilateral rhonchi and wheezes. CV: Heart is regular; no gallop or murmur. GI: Abdomen is soft and not tender. There is no palpable mass or visceromegaly. Neuro: There is no focal deficits. ADDITIONAL DATA: His BMP from today is normal. His ammonia from today is 59; 96 yesterday. Ultrasound of right upper quadrant does not reveal any particular abnormalities. The liver does not show any features of her cirrhosis. ASSESSMENT AND PLAN: COPD exacerbation with acute on chronic hypoxic and hypercapnic respiratory failure. We will continue IV Levaquin. We will substitute IV Solu-Medrol with oral prednisone. Continue nebulizer treatments with DuoNeb. Confusion. Better today. It could be secondary to his hypercapnia. Then, it should get better with the above-mentioned treatments. It could be secondary to increased ammonia level. His ammonia level from today is significantly improved when compared to yesterday. Ultrasound of liver does not show any features of cirrhosis. He does have underlying bipolar disorder. I am going to restart he is lithium and Topamax. His lithium level is a little bit lower and then recommended range. Disposition: His discharge will likely happen tomorrow a.m. - Exam Vitals: Temp Pulse Resp BP Pulse Ox 98.0 F 73 15 120/71 99 09/28/18 19:24 09/28/18 19:24 18 19:24 09/28/18 19:24 09/28/18 19:24 Exam: xx - Assessment and Plan (1) COPD exacerbation Current Visit: Yes Status: Acute (2) Confusion Current Visit: Yes Status: Acute (3) Mood disorder due to known physiological condition, unspecified Current Visit: Yes Status: Acute (4) DVT prophylaxis Current Visit: Yes Status: Acute - Time Spent with Patient Total time spent is greater than 50% in coordination of care (as documented) at patient's floor/unit and/or counseling patient: 25 - 35 minutes Plan of Care Discussed with: family Internal Medicine: Result - Labs CBC & Chem 7: 09/27/18 05:19 09/28/18 04:00 Labs: BMP 09/28/18 04:00 Sodium 137 Potassium 3.9 Chloride 103 Carbon Dioxide 29 BUN 16 Creatinine 0.71 Glucose 104 Calcium 9.7 - ABG Interpretation ABG results: ABG ABG pH 7.41 pH Units (7.32-7.45) 09/27/18 06:32 ABG pCO2 51 mmHg (35-45) H 09/27/18 06:32 ABG pO2 82 mmHg (85-104) L 09/27/18 06:32 ABG O2 Saturation 96 % (95-98) 09/27/18 06:32 - Impressions Impressions Liver Ultrasound 09/27/18 21:00 IMPRESSION: Unremarkable right upper quadrant ultrasound with the caveat that the pancreas could not be identified. D/ / Stanislaw Doan MD / Stanislaw Doan MD Interpreting Provider: Stanislaw Doan MD Consult Discharge Plan - Plan Referrals: NONE,PCP [Primary Care Provider] -
[2018-09-28] MEDS ORDERED: levoFLOXacin 750 MG TABLET PO SCH (22:00)
[2018-09-28] MEDS: Mirtazapine 15 MG TABLET PO SCH (22:29)
[2018-09-29] MEDS: *HR* OxyCODONE/APAP 10/325 TABLET PO PRN (00:05)
[2018-09-29] MEDS: Ipratropium/Albuterol Neb 3 ML IH SCH ×2 (04:11→10:18)
[2018-09-29] MEDS: *HR* Heparin 5,000 UNIT/ML VIAL SQ SCH (05:09)
[2018-09-29 07:04] VITALS: BP 127/85
[2018-09-29] MEDS: predniSONE 20 MG TABLET PO SCH (08:26)
[2018-09-29] MEDS: Lithium Carbonate 300 MG CAPSULE PO SCH (08:26)
[2018-09-29] MEDS: Aspirin Enteric Coated 81 MG Tablet PO SCH (08:26)
[2018-09-29] MEDS: Famotidine 20 MG TABLET PO SCH (08:26)
[2018-09-29] MEDS: Topiramate 25 MG TABLET PO SCH (08:26)
--- NOTE | 2018-09-29 11:02 | Discharge Summary ---
Orders not resulted at time of discharge: Pending orders 09/26/18 20:16 Culture,Blood [BC] Stat Date of Encounter: 09/29/18 Time of Encounter: 10:59 - Discharge Diagnosis (1) COPD exacerbation Priority: Primary Status: Acute (2) Confusion Priority: Primary Status: Acute (3) Bipolar affective disorder Priority: Secondary Status: Chronic Qualifiers: Active/Remission status: remission status unspecified Qualified Code(s): F31.9 - Bipolar disorder, unspecified Hospital course: HOSPITAL COURSE: The patient is a 58-year-old male. He has underlying COPD and bipolar disorder. He was using oxygen at 5 L/min nasal cannula before this hospitalization. We admitted him with altered mental status/difficulty breathing. We found him to have some coughing and wheezing. ABG was done. It showed PCO2 of 51 and PO2 of 82 on FiO2 of 32%. He got ammonia checked on the very next day after the admission. It was 96. Repeated one on the very next day was only 59. We treated him for COPD exacerbation with Levaquin, IV Solu-Medrol and nebulizer treatments with DuoNeb. He was getting supplemental oxygen. We checked his ultrasound of right upper quadrant. His liver seems to be normal in structure. His lithium level was checked it was a little bit below required range. His breathing returned to his baseline. His confusion nearly completely subsided. See also consult from psychiatry. CONDITION AT DISCHARGE: The patient feels good. Denies chest pain. Denies difficulty breathing. He does have mild cough but not wheezing. Denies abdominal pain, nausea and vomiting. I checked his pulse ox on room air it was 98%! Skin: Free of rash and discoloration. Respiratory: Normal breath sounds with no crackles and wheezes bilaterally. CV: Heart is regular with no gallop or murmur. GI: Abdomen is flat and soft with no palpable mass or visceromegaly. Neuro exam: There is no focal deficits. Normal speech, swallowing and gait. SEE DISCHARGE ORDERS/MEDICATIONS.. Discharge discussed with: patient, family - Time Spent with Patient Total time spent providing and/or coordinating discharge services: Greater than 30 minutes (40 minutes..) - Discharge Medications Prescriptions: Lactulose 10 gm PO BID #900 mls levoFLOXacin [Levaquin] 750 mg PO Q24H 5 Days #5 tablet predniSONE [PredniSONE] 20 mg PO QAM 5 Days #5 tablet Home Medications: Aspirin [Adult Aspirin] 81 mg PO DAILY 09/27/18 [History] Baclofen [Lioresal] 10 mg PO TID PRN 09/27/18 [History] Escitalopram [Lexapro] 20 mg PO DAILY 09/27/18 [History] [place] Carbonate 300 mg PO TID 09/27/18 [History] Mirtazapine 45 mg PO HS 09/27/18 [History] Nabumetone [Relafen] 500 mg PO BIDWM 09/27/18 [History] OxyCODONE/APAP 10/325 [Percocet 10/325 MG] 1 tab PO Q6H PRN 09/27/18 [History] Ranitidine HCl [Acid Oral And Maxillofacial Surgeon] 150 mg PO BID 09/27/18 [History] Topiramate 50 mg PO BID 09/27/18 [History] Lactulose 10 gm PO BID #900 mls 09/29/18 [Rx] levoFLOXacin [Levaquin] 750 mg PO Q24H 5 Days #5 tablet 09/29/18 [Rx] predniSONE [PredniSONE] 20 mg PO QAM 5 Days #5 tablet 09/29/18 [Rx] Allergies/Adverse Reactions: Allergy/AdvReac Type Severity Reaction Status Date / Time morphine AdvReac See Verified 09/26/18 20:00 Comments Date of admission: 09/27/18 07:57 Primary care physician: PCP NONE Consults: 09/27/18 05:19 Consult to Nurse Navigator [CONS] Routine Comment: 09/27/18 06:50 Consult to Psychiatry [CONS] Routine Consulting Provider: Psychiatry Alejandra Reason consult: Altered mental status Other reason and/or additional details: Patient presents with worsening mental status and confusion. Appears to be on several antipsychotics including lithium. Call Completed: No Discharging clinician: Navin Reed Anticipated date of discharge: 09/29/18 - Constitutional Vitals: Temp Pulse Resp BP Pulse Ox 98.0 F 70 18 127/85 99 09/29/18 06:58 09/29/18 06:58 09/29/18 10:18 09/29/18 06:58 09/29/18 10:18 General appearance: Present: A&O X 3, no acute distress, answers questions appropriately Exam: xx - Patient Status Disposition: Home, Self-Care Condition: Fair - Discharge Instructions Instructions: Altered Mental Status (GEN), COPD Exacerbation, Artificial Flowers Supervisor (GEN) Follow Up With: NONE,PCP [Primary Care Provider] - Additional Instructions: OXYGEN AT 2 L/MIN, WHEN SLEEPING AND IF NEEDED (DIFFICULTY BREATHING).. THE PATIENT HAS MILDLY ELEVATED CO2 (IN ABG) AND AMMONIA. BMP AND AMMONIA -- IN1-2 WEEKS.. - Diet and Activity Activity: increase activity as tolerated Diet: advance to your usual diet - VTE Deep Vein Thrombosis/Pulmonary Embolism Present on Admission: No
--- NOTE | 2018-09-29 11:02 | Electrocardiograph Report ---
[address] [address] Test Date: 2018-09-26 Pat Name: Nii Flores Department: EXAM4 Room: 3A33 Gender: M [employer] Inspector: : [id number] Requested By: Alfonso Rivera Order Number: [id number] Reading MD: Leticia Hyde Measurements Intervals [place] Rate: 80 P: 59 WV: 165 QRS: 65 QRSD: 78 T: 64 QT: 361 QTc: 417 Interpretive Statements Sinus rhythm Abnormal R-wave progression, early transition Electronically Signed On 09-29-2018 11:00:26 EST by Leticia Hyde
== END 2018-09-29 14:57 | disposition home or self-care (01) | DRG 190 ==
LOC: 3ANU 19:58 → EMEROOARM 19:58 → SUATTDRO 09-27 00:57 → 3ANU 09-27 01:15
PROVIDERS: ADMIT Internal Medicine; ATTEND Internal Medicine